=== PATIENT | male | born 1990 | race Caucasian/White ===

== ENCOUNTER 2016-11-04 02:03 | Emergency (ER) | payer OTHER ==
--- NOTE | 2016-11-04 02:14 | EDPHY ---
HPI/HX/ROS/PE/MDM Narrative: Chief complaint: Chest pressure HPI: 26-year-old male woke this morning from sleep with 3/10 pressure in his central chest. Patient states he also had some pain in his lateral left shoulder which has since resolved. He does not have a history of the same. Does state that he did drink several alcoholic beverages yesterday evening. No nausea or vomiting. No fevers or chills. No cough. No dyspnea on exertion. No orthopnea. Does not have a family history of coronary disease or sudden cardiac . He does not smoke. He does drink occasional alcohol. Denies any other drug use. He has no risk factors for coronary artery disease or PE. ROS: 10 point Review of Systems is negative except as noted in the HPI. Physical exam: Gen: Awake, Alert, No Distress HEENT: Nose: no rhinorrhea Eyes: PERRLA, EOMI Mouth: Moist mucosa Neck: Supple, no JVD Chest: nontender, lungs clear to auscultation Heart: S1, S2 normal, no murmur Abd: Soft, non-tender, no guarding Back: no CVA tenderness, no midline tenderness Ext: no edema, non-tender Skin: no rash Neuro: CN II-XII intact, Sensation grossly intact, Strength 5/5 in bilateral upper and lower extremities ED Course: EC normal ECG. 0240 patient feeling improved after GI cocktail. I have discussed with him that alcohol cane increased reflux symptoms. He will start taking an H2 kvng if he continues to have problems. I will also refer him for primary care physician for outpatient follow-up. She has no evidence of acute coronary syndrome or pulmonary process at this time. Has no risk factors normal ECG. - Data Points Medications Given: Discontinued Medications Miscellaneous Medication (Gi Cocktail) 55 ml PO EDNOW ONE Stop: 11/04/16 02:20 Last Admin: 11/04/16 02:28 Dose: 55 ml General Initial Vital Signs: Initial Vital Signs Temperature (C) 37 C 11/04/16 02:06 Heart Rate 68 11/04/16 02:06 Respiratory Rate 16 11/04/16 02:06 Blood Pressure 121/70 H 11/04/16 02:06 O2 Sat (%) 96 11/04/16 02:06 O2 Delivery Mode Room Air Allergies/Adverse Reactions: No Known Allergies Allergy (Verified 11/04/16 02:09) Home Medications: Medication Instructions Recorded NK [No Known Home Meds] 06/27/14 Departure - Departure Disposition: Home, Routine, Self-Care Clinical Impression: Gastroesophageal reflux disease Condition: Good Instructions: Gastroesophageal Reflux Disease (ED) Additional Instructions: He may take an [id number] and acid such as Pepcid if the continue of symptoms. Follow up with primary care physician in 2-3 days for re-evaluation. Return to the emergency department for increasing chest pain, shortness of breath, palpitations, or any other concerns. Referrals: NONE *PRIMARY CARE P,. [Primary Care Provider] - As per Instructions Angelica Del Rio DO [Doctor of Osteopathy] - As per Instructions
[2016-11-04] MEDS ORDERED: MAALOX/LIDO/HYOSC GI COCKTAIL 55 ML BOTTLE PO ONE (02:19)
--- NOTE | 2016-11-04 02:22 | CPEKG ---
Heart Rate: 74 RR Interval: 811 P-R Interval: 160 QRSD Interval: 84 QT Interval: 372 QTC Interval: 413 P Swatara: 73 QRS Swatara: 75 T Wave Swatara: 41 EKG Severity - NORMAL ECG - EKG Impression: SINUS RHYTHM Electronically Signed By: William Medrano 04-Nov-2016 03:26:49
[2016-11-04 02:54] VITALS: BP 114/71; PULSE 74; RESP 12; TEMP 98.1; O2SAT 94
== END 2016-11-04 02:54 | disposition home or self-care (01) ==
DX: K21.9 Gastro-esophageal reflux disease without esophagitis (principal)

== ENCOUNTER 2017-05-26 21:30 | Emergency (ER) | payer OTHER ==
[2017-05-26 21:35] VITALS: RESP 16; TEMP 98.4
--- NOTE | 2017-05-26 22:08 | EDPHY ---
H & P Stated Complaint: pt thinks he has a fish bone in throat Time Seen by Provider: 05/26/17 22:04 HPI/ROS: CHIEF COMPLAINT: Throat foreign body HISTORY OF PRESENT ILLNESS: Patient is a 26-year-old man who comes to the emergency department complaining that he has a fishbone stuck in his throat. He states that he was eating salmon around 6 o'clock this evening got a bone stuck in his throat. He has not had any trouble breathing. He is not having any trouble swelling. He states that it is irritated around his Jeremiah's apple. He has not vomited. REVIEW OF SYSTEMS: Constitutional: denies: chills, fever, recent illness, recent injury EENTM: See HPI Respiratory: denies: cough, shortness of breath Cardiac: denies: chest pain, irregular heart rate, lightheadedness, palpitations Gastrointestinal/Abdominal: denies: abdominal pain, diarrhea, nausea, vomiting, blood streaked stools Genitourinary: denies: dysuria, frequency, hematuria, pain Musculoskeletal: denies: joint pain, muscle pain Skin: denies: lesions, rash, jaundice, bruising Neurological: denies: headache, numbness, paresthesia, tingling, dizziness, weakness Hematologic/Lymphatic: denies: blood clots, easy bleeding, easy bruising Immunologic/allergic: denies: HIV/AIDS, transplant EXAM: GENERAL: Well-appearing, well-nourished and in no acute distress. HEAD: Atraumatic, normocephalic. EYES: Pupils equal round and reactive to light, extraocular movements intact, sclera anicteric, conjunctiva are normal. ENT: TMs normal, nares patent, oropharynx clear without exudates. Moist mucous membranes. NECK: Normal range of motion, supple without lymphadenopathy or JVD. LUNGS: Breath sounds clear to auscultation bilaterally and equal. No wheezes rales or rhonchi. HEART: Regular rate and rhythm without murmurs, rubs or gallops. ABDOMEN: Soft, nontender, normoactive bowel sounds. No guarding, no rebound. No masses appreciated. BACK: No CVA tenderness, no spinal tenderness, step-offs or deformities EXTREMITIES: Normal range of motion, no pitting or edema. No clubbing or cyanosis. NEUROLOGICAL: Cranial nerves II through XII grossly intact. Normal speech, normal gait. 5/5 strength, normal movement in all extremities, normal sensation PSYCH: Normal mood, normal affect. SKIN: Warm, dry, normal turgor, no visible rashes or lesions. Source: Patient Exam Limitations: No limitations - Medical/Surgical History Hx Asthma: No Hx Chronic Respiratory Disease: No Hx Diabetes: No Hx Cardiac Disease: No Hx Renal Disease: No Hx Cirrhosis: No Hx Alcoholism: No Hx HIV/AIDS: No Hx Splenectomy or Spleen Trauma: No Other PMH: denies - Family History Significant Family History: No pertinent family hx - Social History Smoking Status: Never smoked Alcohol Use: Sober Drug Use: None Constitutional: Initial Vital Signs Temperature (C) 36.9 C 05/26/17 21:33 Heart Rate 59 L 05/26/17 21:33 Respiratory Rate 16 05/26/17 21:33 Blood Pressure 135/68 H 05/26/17 21:33 O2 Sat (%) 94 05/26/17 21:33 O2 Delivery Mode Room Air Allergies/Adverse Reactions: No Known Allergies Allergy (Verified 05/26/17 21:35) Home Medications: Medication Instructions Recorded NK [No Known Home Meds] 06/27/14 Medical Decision Making - Diagnostics Imaging: Discussed imaging studies w/ sanitary landfill supervisor Radiologist ED Course/Re-evaluation: 10:35 p.m. we discussed the x-ray results. The patient is relieved. He is not in any distress. He is drinking mateusz timmy. I will give him a GI cocktail to treat symptomatically and a follow-up with ENT. Differential Diagnosis: Partial list of the Differential diagnosis considered include but were not limited to; esophageal foreign body, tracheal foreign body, abrasion and although unlikely based on the history and physical exam, I also considered perforation, infection, abscess . I discussed these differential diagnoses and the plan with the patient as well as the usual and expected course. The patient understands that the diagnosis is provisional and that in medicine we are not always correct and that further workup is often warranted. Usual and customary warnings were given. All of the patient's questions were answered. The patient was instructed to return to the emergency department should the symptoms at all worsen or return, otherwise to followup with the physician as we discussed. - Data Points Medications Given: Discontinued Medications Al Hydroxide/Mg Hydroxide (Maalox Susp) 30 ml PO EDNOW ONE Stop: 05/26/17 22:34 Last Admin: 05/26/17 22:54 Dose: 30 ml Hyoscyamine Sulfate (Levsin, Hyomax-Sl) 0.25 mg PO ONCE ONE Stop: 05/26/17 22:35 Last Admin: 05/26/17 22:54 Dose: 0.25 mg Lidocaine (Lidocaine 2% Viscous) 5 ml PO EDNOW ONE Stop: 05/26/17 22:34 Last Admin: 05/26/17 22:54 Dose: 5 ml Departure - Departure Disposition: Home, Routine, Self-Care Clinical Impression: FB pharynx/larynx Qualifiers: Encounter type: initial encounter Qualified Code(s): T17.208A - Unspecified foreign body in pharynx causing other injury, initial encounter; T17.308A - Unspecified foreign body in larynx causing other injury, initial encounter Condition: Fair Instructions: Foreign Body in Pharynx (ED) Referrals: NONE *PRIMARY CARE P,. [Primary Care Provider] - As per Instructions Librado Escoto MD [Medical Doctor] - As per Instructions
[2017-05-26] MEDS ORDERED: LIDOCAINE 2% VISCOUS 15 ML UDCUP PO ONE (22:33)
[2017-05-26] MEDS ORDERED: MAG HYDROX/AL HYDROX/SIMETH 30 ML UDCUP PO ONE (22:33)
[2017-05-26] MEDS ORDERED: HYOSCYAMINE SULFATE 0.125 MG TAB PO ONE (22:34)
[2017-05-26 23:13] VITALS: BP 122/64; PULSE 61; O2SAT 95
== END 2017-05-26 23:10 | disposition home or self-care (01) ==
DX: T17.208A Unspecified foreign body in pharynx causing other injury, initial encounter (principal); T17.308A Unspecified foreign body in larynx causing other injury, initial encounter; X58.XXXA Exposure to other specified factors, initial encounter